=== PATIENT | female | born 1965 | race African-American/Black ===

== ENCOUNTER 2021-09-28 13:43 | Emergency (ER) | payer OTHER, MEDICAID ==
[~2021-09-28] VITALS: Ht 167.6 cm; Wt 90.7 kg
[2021-09-28] MEDS ORDERED: diphenhdrAMINE HCL 50 MG/1 ML VL ONE (13:58)
[2021-09-28] MEDS ORDERED: LORazepam 2MG/ML-1ML VIAL ONE (13:58)
[2021-09-28] MEDS ORDERED: HALOPERIDOL LACTATE 5 MG/ML INJ VIAL ONE (13:59)
[2021-09-28] MEDS ORDERED: diphenhdrAMINE HCL 50 MG/1 ML VL IM ONE (14:15)
[2021-09-28] MEDS ORDERED: HALOPERIDOL LACTATE 5 MG/ML INJ VIAL IM ONE (14:15)
[2021-09-28] MEDS ORDERED: LORazepam 2MG/ML-1ML VIAL IM ONE (14:15)
[2021-09-28 17:16] LABS: Calcium 8.9 mg/dL (8.5-10.1); Potassium 3.3 mmol/L (3.5-5.1)
[2021-09-28 17:17] LABS: Salicylate < 1.7 mg/dL (2.8-20.0)
[2021-09-28 17:20] LABS: BUN/Creatinine Ratio 6.4; Bilirubin, Total 0.4 mg/dL (0.2-1.0); Total Protein 8.8 g/dL (6.4-8.2)
[2021-09-28 17:29] LABS: Acetaminophen < 2.0 ug/mL (10-30)
[2021-09-28 20:20] VITALS: BP 115/73
== END 2021-09-28 21:05 | disposition short-term general hospital (02) ==
LOC: EDUNIT# 13:43 → ER 13:43 → EDBD 13:43 → ER 21:05
DX: S61.512A Laceration without foreign body of left wrist, initial encounter (principal); R45.851 Suicidal ideations; F32.9 Major depressive disorder, single episode, unspecified; F20.9 Schizophrenia, unspecified; Z90.710 Acquired absence of both cervix and uterus; X78.8XXA Intentional self-harm by other sharp object, initial encounter; Y93.89 Activity, other specified; Y92.89 Other specified places as the place of occurrence of the external cause; Y99.8 Other external cause status
CPT/HCPCS: 12002; 36415; 71045; 73100; 80053; 80329; 84484; 87426; 96372; 99285; J1200; J1630; J2060

== ENCOUNTER 2024-01-29 07:28 | Emergency (ER) | payer OTHER ==
[~2024-01-29] VITALS: Ht 162.6 cm; Wt 97.7 kg
[2024-01-29 08:31] LABS: Urine Bacteria FEW /hpf (None Seen); Urine Blood Negative /uL (Negative); Urine Clarity Clear (Clear); Urine Hyaline Cast FEW /lpf (0 - 2); Urine Mucus FEW (None Seen); Urine Protein, UAD Negative (Negative); Urine Specific Gravity 1.013 (1.001-1.035); Urine Urobilinogen Normal (Negative); Urine WBC 1 /hpf (0 - 5); Urine pH 5.5 (5.0-8.0)
[2024-01-29 08:32] LABS: Urine Color Straw (Yellow)
[2024-01-29 08:51] LABS: Basophils # (auto) 0 10 ^3/uL (0-0.2); Basophils % (auto) 0.7 % (0.0-2.0); Eosinophils # (auto) 0 10 ^3/uL (0-0.8); Eosinophils % (auto) 0.6 % (0.0-7.0); Hematocrit 38.5 % (36.0-46.0); Hemoglobin 13.1 g/dL (12.2-16.2); Lymphocytes # (auto) 1.8 10 ^3/uL (0.4-5.4); Lymphocytes % (auto) 26.9 % (10.0-50.0); Mean Corpuscular Hemoglobin 33.6 pg (28.0-32.0); Mean Corpuscular Hgb Conc. 34.1 g/dL (32.0-36.0); Mean Corpuscular Volume 98.8 fL (80.0-100.0); Monocytes # (auto) 0.5 10 ^3/uL (0-1.3); Monocytes % (auto) 7.6 % (0.0-12.0); Neutrophils # (auto) 4.4 10 ^3/uL (1.6-8.6); Neutrophils % (auto) 64.2 % (37.0-80.0); Red Cell Distribution Width 15.4 % (11.8-14.3); White Blood Cell 6.8 10^3/uL (4.4-10.8)
[2024-01-29 09:07] LABS: Chloride 100 mmol/L (98-107); Potassium 3.7 mmol/L (3.5-5.1); Sodium 135 mmol/L (136-145)
[2024-01-29 09:08] LABS: Anion Gap 11 (5-15); Carbon Dioxide 24 mmol/L (20-30)
[2024-01-29 09:09] LABS: Calcium 9.3 mg/dL (8.5-10.1)
[2024-01-29 09:13] LABS: Blood Urea Nitrogen 8 mg/dL (9-23); Glucose 82 mg/dL (74-106)
[2024-01-29 10:16] VITALS: BP 148/92; PULSE 91; RESP 16; TEMP 97.1; O2SAT 97
[2024-01-29] MEDS: cloNIDine HCL 0.1 MG TAB PO ONE (10:30)
== END 2024-01-29 14:22 | disposition home or self-care (01) ==
LOC: ER 07:28
DX: I10 Essential (primary) hypertension (principal); I89.9 Noninfective disorder of lymphatic vessels and lymph nodes, unspecified; Z88.0 Allergy status to penicillin; Z90.710 Acquired absence of both cervix and uterus
CPT/HCPCS: 36415; 71045; 80048; 81001; 85025